=== PATIENT | male | born 1995 | race Caucasian/White ===

== ENCOUNTER 2022-04-10 16:43 | Emergency (ER) | payer OTHER ==
[~2022-04-10] VITALS: Ht 182.9 cm; Wt 90.7 kg
[2022-04-10] MEDS ORDERED: ONDANSETRON HCL INJ 2MG/ML 2ML 2 MG/ML VIAL IV STA (17:29)
[2022-04-10 17:39] LABS: BASOPHILS % 0.3 % (0.0-1.0); EOSINOPHILS # (AUTO) 0.1 (0.0-0.4); EOSINOPHILS % 1.4 % (0.0-6.0); HEMATOCRIT 43.1 % (38.2-49.6); HEMOGLOBIN 14.8 g/dL (14.0-18.0); LYMPHOCYTES # (AUTO) 1.7 (1.0-3.2); LYMPHOCYTES % 24.4 % (18.0-39.1); MEAN CORPUSCULAR HEMOGLOBIN 30.3 pg (28-32); MEAN CORPUSCULAR HGB CONC 34.3 g/dL (31-35); MEAN CORPUSCULAR VOLUME 88.3 fL (81-99); MONOCYTES # (AUTO) 0.6 (0.2-0.8); MONOCYTES % 7.9 % (4.4-11.3); NEUTROPHILS # (AUTO) 4.7 (2.1-6.9); NEUTROPHILS % 65.9 % (38.7-80.0); PLATELET COUNT 226 x10e3/uL (140-360); RED BLOOD COUNT 4.88 x10e6/uL (4.3-5.7); RED CELL DISTRIBUTION WIDTH 12.4 % (11.7-14.4)
[2022-04-10 17:59] LABS: ALBUMIN 4.7 g/dL (3.5-5.0); ALBUMIN/GLOBULIN RATIO 1.7 (0.8-2.0); ANION GAP 15.4 mmol/L (8-16); CALCIUM 9.4 mg/dL (8.4-10.2); CREATININE, SERUM 0.91 mg/dL (0.72-1.25); POTASSIUM 3.4 mmol/L (3.5-5.1)
[2022-04-10] MEDS ORDERED: PANTOPRAZOLE SO40 MG PO (19:57)
[2022-04-10] MEDS ORDERED: ONDANSETRON ODT4 MG PO (19:57)
== END 2022-04-10 20:02 | disposition home or self-care (01) ==
LOC: ER 16:55
DX: R11.0 Nausea (principal); K29.70 Gastritis, unspecified, without bleeding; R53.1 Weakness
CPT/HCPCS: 36415; 80053; 83690; 85025; 99283; C9113; J2405